=== PATIENT | female | born 2000 | race Caucasian/White ===

== ENCOUNTER 2018-04-19 15:22 | Emergency (ER) | payer MEDICAID ==
[~2018-04-19] VITALS: Ht 157.5 cm; Wt 87.0 kg
[2018-04-19 16:35] LABS: BASOPHILS % 0.6 % (0.0-2.0); EOSINOPHILS % 1.9 % (0.0-5.0); HEMATOCRIT. 34.6 % (36.0-48.0); HEMOGLOBIN. 11.7 g/dL (12.0-16.0); LYMPHOCYTES % 31.4 % (20.0-50.0); MEAN CORPUSCULAR HEMOGLOBIN 29.6 pg (28.0-32.0); MEAN CORPUSCULAR VOLUME 87.2 fL (81.0-99.0); MEAN PLATELET VOLUME 8.4 fl (7.4-10.4); MONOCYTES % 7.1 % (2.0-8.0); PLATELET 297 x1000/uL (130-400); RED BLOOD CELL COUNT 3.97 mill/uL (4.2-5.4)
[2018-04-19 16:39] LABS: CHLORIDE 103 mEq/L (98-107)
[2018-04-19 16:46] LABS: CLARITY URINE CLOUDY (CLEAR); COLOR URINE YELLOW (YELLOW); KETONES URINE NEGATIVE (NEGATIVE); LEUKOCYTE ESTERASE URINE NEGATIVE (NEGATIVE); NITRITE URINE NEGATIVE (NEGATIVE); OCCULT BLOOD URINE NEGATIVE (NEGATIVE); PROTEIN URINE NEGATIVE (NEGATIVE); SPECIFIC GRAVITY URINE 1.019 (1.005-1.030); UROBILINOGEN URINE 0.2 E.U./dL (0.2-1.0)
[2018-04-19 17:04] LABS: B-HCG QUANTITATIVE 3288 mIU/mL (<3)
[2018-04-19 18:32] VITALS: BP 118/64
== END 2018-04-19 18:36 | disposition home or self-care (01) ==
LOC: ER 17:44
DX: O20.0 Threatened abortion (principal); O23.31 Infections of other parts of urinary tract in pregnancy, first trimester; Z3A.11 11 weeks gestation of pregnancy
CPT/HCPCS: 36415; 76801; 80053; 81003; 81025; 84702; 85025; 86900; 99285

== ENCOUNTER 2018-08-21 15:13 | Emergency (ER) | payer SELFPAY ==
[~2018-08-21] VITALS: Ht 157.5 cm; Wt 81.0 kg
[2018-08-21 15:28] VITALS: BP 113/78
[2018-08-21] MEDS ORDERED: VISCOUS LIDOCAINE 2% 15 ML UDC MM STA (16:12)
== END 2018-08-21 16:46 | disposition home or self-care (01) ==
LOC: ER 15:13
DX: S10.15XA Superficial foreign body of throat, initial encounter (principal); X58.XXXA Exposure to other specified factors, initial encounter; Y93.89 Activity, other specified; Y92.9 Unspecified place or not applicable
CPT/HCPCS: 42809; 81025; 99284